=== PATIENT | female | born 1965 | race African-American/Black ===

== ENCOUNTER 2016-09-12 12:43 | Emergency (ER) ==
[2016-09-12 13:38] LABS: URINE SOURCE CLEAN CATCH
[2016-09-12 13:43] LABS: BILIRUBIN URINE NEGATIVE (NEGATIVE); BLOOD URINE TRACE (NEGATIVE); COLOR YELLOW; GLUCOSE URINE NEGATIVE (NEGATIVE); LEUKOCYTES URINE NEGATIVE (NEGATIVE); NITRITE URINE POSITIVE (NEGATIVE); PROTEIN URINE TRACE mg/dL (NEGATIVE); SP GRAVITY URINE 1.023; TURBIDITY URINE HAZY (CLEAR); UROBILINOGEN URINE NORMAL (NORMAL)
[2016-09-12] MEDS ORDERED: XYLOCAINE-MPF 1% INJ ONE (13:44)
[2016-09-12] MEDS ORDERED: ROCEPHIN IM ONE (13:44)
[2016-09-12 13:45] LABS: UR EPITHELIAL CELLS >10 /HPF (<10); URINE BACTERIA 4+ /HPF; URINE CULTURE NEEDED? YES; URINE RBC <10 /HPF (<10); URINE WBC <10 /HPF (<10)
--- NOTE | 2016-09-12 13:47 | PROVIDER DOCUMENTATION ---
HPI-Musculoskeletal Pain/Inj - GENERAL Chief Complaint: Back Pain Stated Complaint: BCK PAIN Time Seen by Provider: 09/12/16 13:07 Source: patient - HX OF PRESENT ILLNESS-MUSKULOSKELTAL Nature of Presenting Problem: Pt is a 51 y/o F c chief complaint of lower back pain that has been intermittent x 1 year. Pt states she thinks it correlates to her job that she took on last year that involves lifting and twisting. Pt denies any known injury of spine disease. Pt denies dysuria, nausea, vomiting, fever, chills. On arrival, pt is ambulatory and in no distress. Review of Systems - Adult - REVIEW OF SYSTEMS - ADULT Constitutional: reports: no symptoms reported. denies: chills, fatique Eyes: reports: no symptoms reported. denies: blurred vision, double vision Ears, Nose, Mouth & Throat: reports: no symptoms reported. denies: ear pain, nose pain Cardiovascular: reports: no symptoms reported. denies: chest pain, orthopnea Respiratory: reports: no symptoms reported. denies: cough, shortness of breath Gastrointestinal: reports: no symptoms reported. denies: abdominal pain, nausea Genitourinary: reports: flank pain. denies: dysuria, frequent UTI's Musculoskeletal: reports: back pain, muscle aches. denies: joint pain, joint swelling Integumentary: reports: no symptoms reported. denies: hives, itching, rash Neurological: reports: no symptoms reported. denies: numbness, paresthesia Psychiatric: reports: no symptoms reported. denies: anxiety, emotional problems Endocrine: reports: no symptoms reported. denies: cold intolerance, heat intolerance Hematologic/Lymphatic: reports: no symptoms reported. denies: blood clots, low blood count Allergic/Immunologic: reports: no symptoms reported. denies: food allergy, frequent infections All Other Systems: Reviewed and Negative Past History - Adult - PAST MEDICAL HISTORY-ADULT Review of Records: reports: Old Records Reviewed, Nursing Assessment Review, Medications Reviewed, Social history reviewed & non-contributory. Major Childhood Illnesses: reports: denies history Cardiovascular: reports: denies history Respiratory: reports: denies history Gastrointestinal: reports: denies history Obstetrical/Gynecological: reports: denies history Genitourinary: reports: denies history Musculoskeletal: reports: denies history Neurological: reports: denies history Endocrine/Immune: reports: denies history Other Conditions: reports: denies history - IMMUNIZATION STATUS Childhood Immunizations: See Nurse Assessment Flu Vaccine: See Nurse Assessment - FAMILY HISTORY Family History: reviewed, not pertinent Physical Exam-Injury Related - Physical Exam-Injury Related Initial Vital Signs Reviewed: Yes General Appearance: appears well, alert, no apparent distress Eyes: PERRL/EOMI, pink conjunctivae Head, Ears, Nose, Mouth & Throat: normocephalic/atraumatic, moist mucous membranes, normal ENT inspection Neck: non-tender, full range of motion, supple Respiratory: chest non-tender, lungs clear, normal breath sounds Cardiovascular: normal peripheral pulses, regular rate, rhythm Abdominal Exam: normal bowel sounds, non tender, soft Lymphatic: no adenopathy Back Exam: no vertebral tenderness, CVA tenderness, muscle spasm Extremity: normal range of motion, non-tender, normal gait Integumentary: normal color, warm/dry, blanching Neurologic: grossly normal, no motor/sensory deficits Psych/Mental Status: normal mood/affect, normal thought content, normal thought process, oriented x 3 - Glascow Coma Score Best Eye Response (Harshil): (4) open spontaneously Best Verbal Response (Harshil): (5) oriented Best Motor Response ([place]): (6) obeys commands Progress - PLAN OF CARE/RESULTS Progress/Plan/Lab Results: Orders Category Date Time Status UA Reflex [URINALYSIS W/POSS RFLX CULT] [URINALYSIS] Lab 09/12/16 13:27 Completed Stat URINE CULTURE [RM] Routine Lab 09/12/16 14:39 Received URINE MANUAL MICROSCOPIC [URINALYSIS] Stat Lab 09/12/16 13:27 Completed CefTRIAXONE [Rocephin] Med 09/12/16 13:44 Discontinued 1 gm IM NOW ONE Lidocaine 1% Pf [Xylocaine-Mpf 1%] Med 09/12/16 13:44 Discontinued 5 ml INJ NOW ONE Laboratory Tests 09/12/16 13:27 Urine Source CLEAN CATCH Urine Color YELLOW Urine Turbidity HAZY Urine pH 6.0 Ur Specific [place] 1.023 Urine Protein TRACE A Ur Glucose (Stick) NEGATIVE Ur Ketones (Stick) NEGATIVE Urine Blood TRACE A Urine Nitrite POSITIVE A Urine Bilirubin NEGATIVE Urobilinogen Dipstick NORMAL Urine Leukocytes NEGATIVE Urine WBC (Auto) <10 Urine RBC (Auto) <10 U Epithel Cells (Auto) >10 A Urine Bacteria (Auto) 4+ Urine Crystals NONE SEEN Small Round Cells NONE SEEN Urine Casts NONE SEEN Urine Yeast-like Cells PRESENT Vital Signs - 24 hr 09/12/16 09/12/16 12:47 14:32 Temperature 97.5 F L Pulse Rate 73 62 Respiratory 16 20 Rate Blood Pressure 189/82 174/88 O2 Sat by Pulse 100 100 Oximetry Departure - Departure Time of Disposition Order: 13:45 DIAGNOSIS: UTI (urinary tract infection) Qualifiers: Urinary tract infection type: site unspecified Hematuria presence: without hematuria Qualified Code(s): N39.0 - Urinary tract infection, site not specified Back pain Qualifiers: Back pain location: low back pain Chronicity: chronic Back pain laterality: bilateral Sciatica presence: without sciatica Qualified Code(s): M54.5 - Low back pain Disposition: HOME 01 Certified Medical Emergency: Emergent Condition: Stable Additional Instructions: FOLLOW UP WITH DR. WILCOX OR THE SPINE SURGEON OF YOUR CHOICE. ED Follow Up Instructions: You have been treated by a care provider in the Emergency Department. These instructions are being provided to you so you can have an understanding of how to care for yourself upon discharge. Upon discharge from the Emergency Department, you are responsible for making arrangements for follow-up care by a physician of your choice. Take all prescribed medications as directed. Return to the Emergency Department immediately for any new or worsening symptoms. You may call the Physician Referral phone number at [phone] to obtain a list of Physicians who are taking new patients. Prescriptions: Cyclobenzaprine [Flexeril] 10 mg PO TID #20 tablet Cephalexin [Keflex] 500 mg PO BID #14 capsule Ibuprofen [Motrin] 800 mg PO Q8H PRN PRN #20 tablet PRN Reason: inflammation Omeprazole [Prilosec] 20 mg PO DAILY@0700 #20 capsule Referrals: Loly Barnes MD [Primary Care Provider] - Cali Wilcox DO [STAFF PHYSICIAN] - Forms: Return to School/Parent Work Instructions: Urinary Tract Infection, [id number], Lumbosacral Strain Attestation - Physician/ JF Attestation Patient care was provided by Advanced Practice Provider:: Yes Advanced Practice Provider:: Cali Vasquez Advanced Practice Provider documentation review:: The Mid-level provider documentation, treatment plan and medical decision making was reviewed by the physician who agrees with all treatment and medical decision making by the MLP.
[2016-09-12 14:32] VITALS: BP 174/88
[2016-09-12 14:39] LABS: URINE MICRO REVIEW NEEDED? YES
[2016-09-12 15:12] LABS: URINE CASTS NONE SEEN; URINE CRYSTALS NONE SEEN; URINE SMALL ROUND CELLS NONE SEEN
== END 2016-09-12 14:39 | disposition home or self-care (01) ==
LOC: ED 12:43
DX: N39.0 Urinary tract infection, site not specified (principal); M54.5 Low back pain; M79.1 Myalgia; Z79.899 Other long term (current) drug therapy
CPT/HCPCS: 81001; 87077; 87088; 87186; J0696